=== PATIENT | female | born 1980 | race Caucasian/White ===

== ENCOUNTER → 2021-01-12 | Outpatient (CLI) | payer BC, MEDICARE ==
--- NOTE | 2021-01-12 10:16 | Diagnostic Imaging Report ---
EXAMINATION: Magnetic resonance imaging of the left shoulder without contrast. DATE: January 12, 2021. COMPARISON: None. HISTORY: 40-year-old female, left shoulder pain. TECHNIQUE: Magnetic Resonance Imaging sequences were performed of the shoulder without contrast. FINDINGS: ROTATOR CUFF, LIGAMENTS, TENDONS, AND MUSCLES: There is a 5 mm wide approximately 25-50% partial thickness articular sided versus interstitial tear. The infraspinatus and teres minor tendons are intact. The subscapularis tendon is intact. There is normal rotator cuff muscle bulk and signal. LONG HEAD OF BICEPS: The biceps labral attachment and long head of the biceps tendon is intact. The long head of the biceps tendon is normally positioned within the bicipital groove. GLENOHUMERAL JOINT: The humeral head is well positioned relative to the glenoid. The labrum is grossly intact. There is no identified paralabral cyst. The articular cartilage is grossly intact. There is no joint effusion. ACROMIOCLAVICULAR JOINT: The acromioclavicular joint is normally aligned. The coracoclavicular and coracoacromial ligaments are intact. There are no degenerative changes of the acromioclavicular joint. BONE: The bones all have normal configuration. The bone marrow signal is within normal limits. Specifically, negative for fracture, osteomyelitis, osteonecrosis, or marrow replacing process. BURSAE AND SOFT TISSUES: The bursae and soft tissue surrounding the shoulder are unremarkable. IMPRESSION: 1. 5 mm wide approximately 25-50% partial thickness articular sided versus interstitial tear of the supraspinatus tendon. 2. Intact acromioclavicular joint. 3. Grossly intact labrum and unremarkable additional glenohumeral joint assessment. 4. No acute fracture, bone contusion, or evidence of osteonecrosis. Dictated by: Dictated on workstation # [id number]
--- NOTE | 2021-01-12 11:00 | Diagnostic Imaging Report ---
Left shoulder at 1009 hours. INDICATION: Acute pain. 3 views were obtained. There are no prior studies available for comparison. FINDINGS: There is no fracture, dislocation or acute bony abnormality evident. The glenohumeral and acromioclavicular joints are fairly well-maintained. The soft tissues are unremarkable. IMPRESSION: 1. There is no evidence for an acute bony abnormality. 2. If there is clinical concern regarding injury to the rotator cuff or labrum, then MRI would be recommended for additional study. Dictated by: Dictated on workstation # [id number]
== END ==
LOC: RAD 09:30
PROVIDERS: ATTEND Physical Medicine & Rehabilitation
DX: M25.512 Pain in left shoulder (principal)
CPT/HCPCS: 73030; 73221

== ENCOUNTER → 2022-03-23 | Outpatient (CLI) | payer OTHER, MEDICARE | LOC: CARD 11:34 | PROVIDERS: ATTEND Internal Medicine Cardiovascular Disease | DX: I35.1 Nonrheumatic aortic (valve) insufficiency (principal); I51.7 Cardiomegaly | CPT/HCPCS: 93306 ==

== ENCOUNTER → 2022-04-05 | Outpatient (CLI) | payer OTHER, MEDICARE ==
[~2022-04-05] VITALS: Ht 157 cm; Wt 87.0 kg
[~2022-04-05] MED LIST: CATHETER FLUSH 10 ML SYR IVP PRN
[2022-04-05 08:45] VITALS: BP 120/79
--- NOTE | 2022-04-05 19:33 | NUCLEAR STRESS TEST ---
[facility] NUCLEAR STRESS TEST Date of procedure: 04/05/2022. Primary care provider: No local physician. Admitting physician: Bennie Giordano Jr., MD. INDICATION: Abnormal electrocardiogram. BASELINE ELECTROCARDIOGRAM: Sinus rhythm with nonspecific T wave changes in the lateral leads. STRESS TEST PROCEDURE: The patient was exercised for a total of 9 minutes and 0 seconds of the standard Rodney protocol achieving a maximum MET level of 10.5. The resting heart rate was 80 bpm and the peak heart rate was 160 bpm, which represents 89% of the maximum predicted heart rate. The resting blood pressure was 120/79 mmHg and the peak blood pressure was 212/75 mmHg. This represents a normal heart rate and a hypertensive blood pressure response to exercise. The test was stopped due to fatigue. There was no chest discomfort during the test. There were no arrhythmias during the test. There were no significant stress induced electrocardiogram changes. The patient exhibited excellent exercise capacity for age. NUCLEAR PROCEDURE: The patient was administered 11 mCi of intravenous technetium 99m Tetrofosmin at rest for the rest images. The patient was subsequently administered 33 mCi of intravenous technetium 99 M Tetrofosmin at peak stress fo r the stress images. Following an appropriate wait after each injection, imaging was obtained. The images were subsequently processed and reformatted in the usual views. Gated imaging was obtained. The image quality was adequate with a mild degree of gastrointestinal and breast attenuation artifact. CT attenuation correction was used as a adjunct to standard imaging. Both the c orrected and uncorrected images were reviewed for interpretation. NUCLEAR RESULTS: There was normal myocardial perfusion in all segments without evidence of infarction or ischemia. There was normal left ventricular chamber size with an end-diastolic volume of 33 mL and an end-systolic volume of 5 mL. There was no evidence of transient ischemic dilatation. The TID ratio was 0.85. There was paradoxical septal motion of unknown etiology and normal left ventricular systolic function with a calculated ejection fraction of 84%. IMPRESSION: 1. Normal heart rate and a hypertensive blood pressure response to exercise. 2. There was no chest discomfort, arrhythmias, or electrocardiogram changes during the test. 3. The patient exhibited excellent exercise capacity for age at 9 minutes of the Rodney protocol. 4. There was normal myocardial perfusion in all segments without evidence of i nfarction or ischemia. 5. There was paradoxical septal motion of unknown etiology and normal left ventricular systolic function with a calculated ejection fraction of 84%. Certain portions of this document may have been dictated utilizing voice recognition technology. Inherent to this technology, typographical and grammatical errors may exist. As much as I am diligent to identify and correct these mistakes, some errors may remain in the document. BENNIE GIORDANO JR, MD Apr 05, 2022 19:33
== END ==
LOC: CARD 08:00
PROVIDERS: ATTEND Internal Medicine Cardiovascular Disease
DX: R94.31 Abnormal electrocardiogram [ECG] [EKG] (principal)
CPT/HCPCS: 78452; 93017; A9502

== ENCOUNTER → 2023-05-06 | Outpatient (CLI) | payer OTHER, MEDICARE ==
[~2023-05-06] MED LIST changes: -CATHETER FLUSH 10 ML SYR IVP PRN; +HOLD METFORMIN - RECEIVED CONTRAST 20 ML VIAL IV SCH; +IOHEXOL 350 MG/ML 100 ML (OMNIPAQUE 350) VIAL IV ONE; +NS 100 ML (IVPB) BAG IV ONE
--- NOTE | 2023-05-06 16:04 | Diagnostic Imaging Report ---
PROCEDURE: CT abdomen and pelvis with contrast. TECHNIQUE: Multiple contiguous axial images were obtained through the abdomen and pelvis after administration of intravenous contrast. Auto Exposure Controls were utilized during the CT exam to meet ALARA standards for radiation dose reduction. All CT scans use one or more of the following dose optimizing techniques: automated exposure control, MA and/or KvP adjustment based on patient size and exam type or iterative reconstruction. INDICATION: Right lower quadrant abdominal pain x 3 months. Possible hernia. COMPARISON: None. FINDINGS: Included portions of the lung bases are clear. CT ABDOMEN: The liver is hypodense, consistent with hepatic steatosis; otherwise, the liver, adrenal glands, spleen, pancreas, and kidneys have a normal CT appearance. Small bowel loops are nondilated. Normal appendix is identified. There is no loculated fluid collection, free fluid, or free air within the abdomen. No abnormal mesenteric or retroperitoneal adenopathy is seen. There is scattered calcified aortic atherosclerosis. CT PELVIS: The urinary bladder is unopacified. No calculi are seen within the urinary bladder. There is no loculated fluid collection, free fluid, or free air within the pelvis. No abnormal lymph nodes are seen. No hernia is identified. Osseous structures show no acute abnormalities. IMPRESSION: 1. Hepatic steatosis. 2. Otherwise, unremarkable CT of the abdomen and pelvis. Dictated by: Dictated on workstation # [id number]
== END ==
LOC: RAD 13:49
PROVIDERS: ATTEND Obstetrics & Gynecology
DX: K76.0 Fatty (change of) liver, not elsewhere classified (principal)
CPT/HCPCS: 74177